=== PATIENT | male | born 1980 | race Caucasian/White ===

== ENCOUNTER 2025-10-05 20:01 | Emergency (ER) | payer BC, SELFPAY ==
[2025-10-05 20:02] VITALS: BP 140/93
[2025-10-05 21:18] LABS: Hematocrit 45.1 % (39.0-52.0); Hemoglobin 15.8 g/dL (13.0-18.0); Mean Corp Hgb Conc. 35.0 g/dL (33.0-37.0); Mean Corpuscular Volume 84.6 fL (80.0-94.0); Nucleated Red Blood Cells % 0 % (-); Platelet Count 347 10^3/uL (130-400); Red Cell Dist. Width 13.1 % (11.5-14.5)
[2025-10-05 21:37] LABS: ALT (SGPT) 27 U/L (0-50); AST (SGOT) 29 U/L (17-59); Albumin 4.7 g/dl (3.5-5.0); Alkaline Phosphatase 52 U/L (38-126); Blood Urea Nitrogen 12 mg/dl (9-20); Calcium 9.8 mg/dl (8.4-10.2); Carbon Dioxide 23 mmol/L (22-30); Chloride 103 mmol/L (98-107); Glucose 103 mg/dl (70-99); Potassium 4.3 mmol/L (3.5-5.1); Sodium 131 mmol/L (135-145); Total Protein 7.5 g/dl (6.3-8.2); eGFR > 60.00
[2025-10-05 22:35] LABS: TSH 1.77 uIU/ml (0.47-4.68)
--- NOTE | 2025-10-05 22:42 | ED.GENMED ---
History of Present Illness
General
Chief Complaint: Sleep Disturbances
Source: patient and family
Time Seen by Provider: 10/05/25 20:19
Nursing documentation reviewed up to this point in time: agreed with
History of Present Illness
History of Present Illness:
Note:
CHIEF COMPLAINT(S)
Sleep disturbance and stress.
HISTORY OF PRESENT ILLNESS
The patient is a 44-year-old male presenting with sleep disturbance for the past 10 to 12 days, reporting only 2 to 4 hours of sleep per night. He attributes this difficulty sleeping to stress related to marital issues and describes experiencing
what appears to be a midlife crisis. The patient expressed feelings of anxiety about potentially losing his spouse and has experienced panic episodes at night that disrupt his ability to sleep. He highlighted difficulty breathing and anxiety as
significant nighttime issues. Additionally, the patient reported a recent experience of severe jaw clenching during a night terror that led to a 'popping' sensation and bruising around the eyes, although the discomfort has since dissipated.
PAST MEDICAL AND SURGICAL HISTORY
The patient reports a diagnosis of gender dysphoria and has been undergoing hormone therapy since August 07. He takes spironolactone at 100 mg daily and estradiol through a transdermal patch at 0.25 mg. The patient is also taking buspirone for
anxiety. He has a history of substance abuse but reports being clean for 20 years. He has no reported surgical history.
CHRONIC MEDICAL CONDITIONS SIGNIFICANTLY AFFECTING CARE
Gender dysphoria, anxiety.
SOCIAL DETERMINANTS AFFECTING HEALTH
The patient is experiencing marital stress and is concerned about social perceptions related to his gender transition. These factors are contributing to his current anxiety and sleep disturbance.
REVIEW OF SYSTEMS
- Psychiatric: Reports significant anxiety and stress. Has utilized buspirone for anxiety management. Describes stress related to marital issues and midlife concerns.
- Sleep: Noted insomnia and reduced sleep duration due to stress.
PHYSICAL EXAM
General: Alert, no acute distress.
Skin: Warm, dry.
Head: Normocephalic, atraumatic.
Neck: Supple, trachea midline.
Eye Ears, nose, mouth and throat: Oral mucosa moist.
Cardiovascular: Normal peripheral perfusion, No edema.
Respiratory: Respirations are non-labored.
Gastrointestinal : Abdomen nondistended
Back: Normal range of motion, Normal alignment.
Musculoskeletal: Normal ROM, normal strength.
Neurological: Alert and oriented to person, place, time, and situation, No focal neurological deficit observed.
Psychiatric: Cooperative, appropriate mood & affect.
PLAN
The patient plans to follow up with a primary care provider regarding his ongoing anxiety and to discuss the efficacy of current anxiety medications. It was suggested to consider blood work, particularly thyroid testing, to evaluate any other
potential contributors to his symptoms.
DIFFERENTIAL DIAGNOSIS
The Differential Diagnosis includes, in no particular order and is not limited to:
1. Generalized anxiety disorder
2. Sleep apnea
3. Insomnia due to stress
4. Depression
5. Adjustment disorder
6. Temporomandibular joint disorder
7. Midlife crisis
8. Substance withdrawal insomnia
9. Hyperthyroidism
10. Obstructive sleep disorders
Disposition:
SUMMARY OF ENCOUNTER
The patient is a 44-year-old male presenting with sleeping issues and stress, likely related to his ongoing gender transition and associated social stressors. Lab work performed, including TSH, returned normal. The patient was managed with crisis
resources and denied any suicidal or homicidal ideation. He reported feeling more at ease by the end of the encounter.
DISPOSITION
Discharge
ASSESSMENT
The patient�s sleeping problems and stress appear to be related to significant life changes and associated anxiety.
PLAN
The plan is to discharge the patient home with reassurance and instructions for appropriate follow-up care.
PATIENT EDUCATION AND COUNSELING
The patient was provided with crisis resources and reassurances regarding his current mental health state.
FOLLOW-UP INSTRUCTIONS
The patient is advised to follow up with his primary care provider to continue monitoring his mental health and to possibly reassess his anxiety management.
MEDICAL DECISION MAKING
- Complexity of Data Reviewed: Chronic conditions affecting care include gender dysphoria and anxiety. Differential Diagnosis includes insomnia due to stress, generalized anxiety disorder, and adjustment disorder.
- Data:
Category 1:
Lab tests reviewed included a normal TSH.
Category 2:
An independent historian in the form of his wifes sister provided additional context to the situation.
- Risk:
Care significantly affected by social determinants of health, including gender transition-related stress and marital issues.
DIAGNOSIS
Insomnia due to stress, unspecified (ICD-10: F51.09)
Phy Exam
Physical Exam
Physical Exam:
.
Course
Orders/Labs/Results
Orders:
Orders
10/05/25 20:41
Crisis Consult Urgent
Reason for Consult: manic
10/05/25 21:11
CBC/With Diff [Complete Blood Count/With Diff] Urgent
Comprehensive Metabolic Panel Urgent
TSH Urgent
Comment: ADD ON
10/05/25 21:41
Add On- LAB Urgent
Tests Added?: tsh
Abnormal Lab Results
10/05/25
21:11
Absolute Neuts (auto) 6.7 H 10^3/uL
(1.4-6.5)
Absolute Monos (auto) 0.7 H 10^3/uL
(0.1-0.6)
Sodium 131 L mmol/L
(135-145)
Glucose 103 H mg/dl
(70-99)
10/05/25 21:11
10/05/25 21:11
Vital Signs
Initial and Last Documented VS:
Initial Vital Signs
Temp Pulse Resp BP Pulse Ox
98.5 F 86 14 140/93 97
10/05/25 20:02 10/05/25 20:02 10/05/25 20:02 10/05/25 20:02 10/05/25 20:02
Last Documented Vital Signs
Temp Pulse Resp BP Pulse Ox
98.5 F 86 14 140/93 97
10/05/25 20:02 10/05/25 20:02 10/05/25 20:02 10/05/25 20:02 10/05/25 22:45
*Pulse Oximetry
SaO2: 97
Oxygen Mode of Delivery: Room air
Patient hypoxic: no
*Critical Care Note
Total Time (30-74mins, 75-104mins- exclusive of procedures): Not Applicable
ED Attending Note
-
Portions of this chart may have been created with voice recognition software.� Occasional wrong word or��sound alike� substitutions may have occurred due to the inherent limitations of voice recognition software.
Discharge Plan
Departure
Patient Disposition: Home (Routine Discharge)
Date of Disposition: 10/05/25
Time of Disposition: 22:42
Patient with high blood pressure during this ER visit?: Yes
Condition: Good
Discharge Problem:
Anxiety with restlessness, Insomnia
Instructions: Insomnia (DC), BLOOD PRESSURE
Referrals:
Beltran Saeed MD [Family Provider]
Activity Restrictions/Additional Instructions:
Thank You for choosing [facility].
It was a pleasure meeting you and taking part in your care. We hope for your continued healing and wellness.
Please read discharge instructions in their entirety. However, they are for general education and may not describe your exact diagnosis at discharge. Information on your ER visit and medical conditions were discussed with you along with appropriate
follow up information...
If indicated, please take your medications as instructed and indicated on discharge paperwork.
Please schedule a follow up appointment as directed. Call to schedule an appointment
Please return to the emergency department with ANY change in, persisting, or worsening of symptoms. If any of your symptoms do not improve, or persist, or become more severe within 6-12 hours, please return to the emergency department for further
care.
Please return to the emergency department if you develop a headache, neck pain/stiffness, fever greater than 100.4F, chest pain, shortness of breath, persistent nausea, vomiting, slurred speech, difficulty walking, numbness/tingling, weakness, signs
of infection or any other symptoms that are worrisome to you.
If you have any questions or concerns please do not hesitate to call the Hospital at .
Interventions
Interventions:
*Risk Screen - Suicide Last Done: 10/05/25 20:02
*General Assessment Last Done: 10/05/25 20:02
*Neglect/Abuse Screening Last Done: 10/05/25 20:02
*ED- Fall Risk Assessment Last Done: 10/05/25 20:45
*ED COVID-19 Vaccine History Last Done: 10/05/25 20:02
*ED Influenza Vaccine History Last Done: 10/05/25 20:02
ED- Neurological Assessment Last Done: 10/05/25 20:45
ED-Psychological Assessment Last Done: 10/05/25 20:45
Discharge Date and Time
Print Language: SAMOAN
[2025-10-05 23:24] VITALS: BP 144/81
== END 2025-10-05 23:27 | disposition home or self-care (01) ==
LOC: EMR 20:01
PROVIDERS: EMERGENCY PHYSICIAN Student in an Organized Health Care Education/Training Program; FAMILY PHYSICIAN Internal Medicine
DX: F41.9 Anxiety disorder, unspecified (principal); G47.00 Insomnia, unspecified; F64.0 Transsexualism; Z63.0 Problems in relationship with spouse or partner
CPT/HCPCS: 99283; 80053; 84443; 85025